=== PATIENT | male | born 1955 | race Caucasian/White ===

== ENCOUNTER → 2018-09-23 | Outpatient (CLI) | payer MEDICARE ==
[~2018-09-23] MED LIST: AMLODIPINE BESY10 MG PO; ASPIRIN81 MG PO; FLURAZEPAM HCL30 MG PO; GABAPENTIN300 MG PO; IOPAMIDOL 370 MG/ML 200 ML INFUS..BTL INJ ONE; LASIX20 MG PO; METFORMIN HCL500 MG PO; METOLAZONE5 MG PO; METOPROLOL TART50 MG PO; NORCO 10-325 T1 EACH PO; OMEPRAZOLE20 M1 PO; OXYCONTIN PO; SODIUM CHLORIDE 0.9% 50ML 50 ML ONE; TRAZODONE HCL50 MG PO; XANAX2 MG PO
[2018-09-23 11:05] LABS: BLOOD UREA NITROGEN 8 mg/dL (7-26); BUN/CREATININE RATIO 10 (6-25); EST GLOMERULAR FILTRATION RATE > 60 ML/MIN (60-)
--- NOTE | 2018-09-23 14:02 | Diagnostic Imaging Report ---
EXAM: CT Chest, Abdomen and Pelvis WITH contrast INDICATION: Unexplained weight loss, shortness of breath COMPARISON: None. TECHNIQUE: Chest, abdomen and pelvis were scanned utilizing a multidetector helical scanner from the lung apex to the pubic symphysis before and after administration of IV contrast. Coronal and sagittal reformations were obtained. Routine protocol was performed. Scan was performed when during portal venous phase. Dose modulation, iterative reconstruction, and/or weight based adjustment of the mA/kV was utilized to reduce the radiation dose to as low as reasonably achievable. IV CONTRAST: 100 mL of Isovue-370 ORAL CONTRAST: Water RADIATION DOSE: Total DLP: 1199.65 mGy*cm Estimated effective dose: (DLP x 0.015 x size factor) mSv COMPLICATIONS: None FINDINGS: LINES and TUBES: There is an implanted cardiac device in the anterior left chest wall with transvenous leads extending to the right atrium and right ventricle. LUNGS AND AIRWAYS: There are moderate central lobular emphysematous changes. No pulmonary consolidation or focal airspace opacity. There is minimal debris within the mid trachea likely representing mucus. There is mild bilateral perihilar bronchial wall thickening which may be seen with bronchitis. PLEURA: No pleural effusion, pneumothorax or pleural calcification. HEART AND MEDIASTINUM: The thyroid gland is normal. No mediastinal, hilar or axillary lymphadenopathy. The heart is normal in size.. There is no pericardial effusion. No aneurysm or dissection of the thoracic aorta. The ascending aorta is ectatic measuring 4.3 cm, main pulmonary artery dilated measuring 3.8 cm. HEPATOBILIARY: No focal hepatic lesions. No biliary ductal dilation. GALLBLADDER: No radio-opaque stones or sludge. No wall thickening. SPLEEN: No splenomegaly. PANCREAS: No focal masses or ductal dilatation. ADRENALS: No adrenal nodules KIDNEYS/URETERS: Kidneys enhance symmetrically. No hydronephrosis. There is a 5.7 cm lower pole left renal cyst with simple fluid internal density. There is an 8 mm partially exophytic mass at the lateral upper right kidney which is too small to fully characterize (series 2, image 76; series 302, image 88). There is a punctate 3 mm nonobstructing intrarenal calculus on the left. GI TRACT: No abnormal distention, wall thickening, or evidence of bowel obstruction. Sigmoid diverticulosis with no CT evidence for acute diverticulitis. There is a moderately large volume of stool in the colon. The appendix is not identified. There are surgical clips near the cecal pole and correlation with surgical history for possible appendectomy is suggested. There is no right lower quadrant inflammation to suggest appendicitis. PELVIC ORGANS/BLADDER: Urinary bladder has an unremarkable appearance. No discrete abnormal mass or fluid collection is seen in the pelvis. LYMPH NODES: No dominant lymph node mass is seen in the abdomen, retroperitoneum or pelvis. VESSELS: Abdominal aorta, IVC and portal system unremarkable. There are scattered calcified aortic plaques. The portal system is patent but not well opacified due to bolus timing. PERITONEUM / RETROPERITONEUM: No pneumoperitoneum or ascites. BONES: No acute or suspicious bony lesions. There are degenerative changes seen in the spine and hips. SOFT TISSUES: Superficial surrounding soft tissue shows small bilateral inguinal hernias containing fat. IMPRESSION: 1. Moderate centrilobular emphysematous change. No focal pulmonary airspace opacity. Perihilar bronchial wall thickening may be seen with bronchitis. 2. The ascending thoracic aorta is ectatic measuring 4.3 cm. The main pulmonary arteries dilated measuring 3.8 cm, a nonspecific finding which may be seen with pulmonary hypertension. 3. Large simple left renal cyst and punctate nonobstructing left intrarenal calculus. 4. 8 mm protrusion from the lateral upper margin of the right kidney which likely represents a small indeterminate mass, less likely cortical lobulation. Recommend follow-up with renal mass protocol CT to further characterize the finding. Signed by: Dr. Earnest Garrison M.D. on 09/23/2018 1:59 PM
== END ==
LOC: CT 09:59
PROVIDERS: ATTEND Family Medicine
DX: R63.4 Abnormal weight loss (principal)
CPT/HCPCS: 36415; 71260; 74177; 82565; 84520; Q9967